=== PATIENT | male | born 1970 | race Caucasian/White ===

== ENCOUNTER → 2023-01-26 | Outpatient (CLI) | payer SELFPAY ==
--- NOTE | 2023-01-26 16:39 | Diagnostic Imaging Report ---
INDICATION: Trauma, pain. COMPARISON: None available. TECHNIQUE: 3 radiographs of the right wrist dated January 26, 2023. FINDINGS: No acute fracture or dislocation. No destructive osseous process. Carpal alignment is well-maintained. Scapholunate interval is within normal limits. No suspicious radiopaque foreign body. IMPRESSION: Unremarkable examination without acute abnormality. Dictated by: Dictated on workstation # [id number]
== END ==
LOC: RAD 11:18
PROVIDERS: ATTEND Family Medicine
DX: S69.91XA Unspecified injury of right wrist, hand and finger(s), initial encounter (principal); X58.XXXA Exposure to other specified factors, initial encounter
CPT/HCPCS: 73110